=== PATIENT | female | born 1995 | race Caucasian/White ===

== ENCOUNTER → 2021-08-07 16:40 | Outpatient (CLI) | payer OTHER, MEDICAID, SELFPAY ==
[2021-08-07 17:28] LABS: Influenza A - CEPHEID Flu A NEGATIVE (NEGATIVE); Influenza B - CEPHEID Flu B NEGATIVE (NEGATIVE)
== END ==
PROVIDERS: PCP Student in an Organized Health Care Education/Training Program; Visit Provider Physician Assistant
DX: R50.9 Fever, unspecified (principal); R51.9 Headache, unspecified
CPT/HCPCS: 87502

== ENCOUNTER → 2023-05-05 08:09 | Outpatient (CLI) | payer OTHER, SELFPAY ==
--- NOTE | 2023-05-05 | DI.RAD.S_ITS ---
PROCEDURE: XR SINUS <3V INDICATIONS: Acute sinusitis, unspecified TECHNIQUE: One view of the sinuses was acquired. COMPARISON: None. FINDINGS: Sinuses: Visualized sinuses demonstrate no air-fluid levels or mucosal thickening. Bones: No suspicious bony lesions. Nasal septum appears midline. IMPRESSION: No air-fluid levels to suggest acute sinusitis. Approved by: Krishna Shoemaker M.D. on 05/05/2023 at 19:11
== END ==
PROVIDERS: PCP Nurse Practitioner Family; Referring Provider Nurse Practitioner Family; Visit Provider Nurse Practitioner Family
DX: J01.90 Acute sinusitis, unspecified (principal)
CPT/HCPCS: 70210

== ENCOUNTER → 2023-09-10 09:29 | Outpatient (CLI) | payer OTHER, SELFPAY ==
--- NOTE | 2023-09-10 09:29 | DI.CT.S_ITS ---
PROCEDURE: CT SINUS SCREEN WO CON INDICATIONS: CHRONIC PANSINUSITIS, NASAL PAIN,FACIAL PAIN TECHNIQUE: Noncontrast 3.0 mm axial images acquired from the frontal sinuses to the mid-sella, with coronal and sagittal reformats. For radiation dose reduction, the following was used: automated exposure control, adjustment of mA and/or kV according to patient size. COMPARISON: [facility], , XR SINUS <3V, 05/05/2023, 8:14. FINDINGS: Image quality: Excellent. Maxillary Sinuses: There is near complete opacification the right maxillary sinus. The superior medial wall of the right maxillary sinus is remodeled and bowed medially and highly demineralized. The left maxillary sinus appears clear. Ethmoid Air Cells: There is moderate mucosal thickening seen involving the posterior right ethmoid air cells, with associated demineralization. Sphenoid Sinuses: There is complete opacification of the right sphenoid sinuses. Mild mucosal thickening can be seen on the left. Areas of bony demineralization can be seen. Frontal Sinuses: No bony remodeling or destruction. Sinuses are clear. Ostiomeatal Complexes: The ostiomeatal complexes are constitutionally narrowed, with bilateral Bola cells. The right ostiomeatal complex is completely opacified and demineralized. Miscellaneous: Visualized intra-orbital contents are normal. There is demineralization of the right middle turbinate. There is moderate rightward nasal septal deviation. IMPRESSION: Extensive right-sided paranasal sinus disease is seen. The right ostiomeatal complex is completely opacified and demineralized. Dictated by: Ruddy Gonzales M.D. on 09/10/2023 at 9:57 Approved by: Ruddy Gonzales M.D. on 09/10/2023 at 10:01
== END ==
LOC: CT 09:29
PROVIDERS: PCP Nurse Practitioner Family; Referring Provider Otolaryngology; Visit Provider Otolaryngology
DX: J34.89 Other specified disorders of nose and nasal sinuses (principal); R51.9 Headache, unspecified; J32.4 Chronic pansinusitis
CPT/HCPCS: 70486

== ENCOUNTER 2023-11-12 13:28 | Day surgery (SDC) | payer BC, SELFPAY ==
[2023-11-11 12:51] VITALS: BMI 25.0
[2023-11-12 14:34] VITALS: BP 122/80; PULSE 77; RESP 16; TEMP 36.4; O2SAT 100
[2023-11-12] MEDS: LACTATED RINGERS 1,000 ML 42 ML IV (14:48)
[2023-11-12] MEDS: OXYMETAZOLINE NASAL SPRAY 30 ML 2 SPRAYS NASAL (14:48)
[2023-11-12] MEDS: ACETAMINOPHEN IV 1,000 MG/100 ML VIAL 400 MG IV (14:58)
[2023-11-12] MEDS: SCOPOLAMINE 1 PATCH TOP (14:58)
[2023-11-12 15:02] VITALS: BP 122/80; PULSE 77; RESP 16; TEMP 36.4; O2SAT 100; BMI 24.9
--- NOTE | 2023-11-12 15:12 | PM.PREOP ---
Pre-operative Note Interval Note History & Physical reviewed/Exam performed by Physician: Yes Changes to H&P: No
--- NOTE | 2023-11-12 15:12 | PM.OP.1 ---
Operative Date/Time/Diagnoses Date of procedure: 11/12/23 Time of procedure: 17:55 Pre-op diagnosis: Chronic rhinosinusitis, facial pain, headache, septal deviation, nasal airway obstruction Post-op diagnosis: same Procedure & Clinicians Procedure: 1. Right endoscopic maxillary antrostomy with tissue removal 2. Right endoscopic total ethmoidectomy 3. Right endoscopic sphenoidotomy with tissue removal 4. Septoplasty Same procedure as scheduled: Yes Indications: 28 Year old with the above diagnoses incompletely managed with medical therapy presents for the above procedure. Following discussion of the material risks benefits complications and alternatives, the patient elected to proceed. Surgeon: Joel Lorenzo Click Yes if Unassisted: Yes Anesthesia Type: General and Local Operative Notes Findings: RIGHT 2-3+ bony and cartilaginous deviation, no strips taken of the dorsal or caudal residual quadrilateral cartilage, single RIGHT mid low flap perforation, LEFT flap intact. LEFT inf turb hypertrophy. Purulence and inflamed hypertrophied mucosa filling RIGHT maxillary sinus, culture taken. Edematous and inflamed hypertrophied mucosa filling RIGHT sphenoid sinus. Superior portion of posterior ethmoids with minimal inflammation and patent. Specimen(s): none sent (Culture RIGHT maxillary sinus) Estimated Blood Loss (mL): 50 Procedure in detail: Following identification and confirmation of consent as well as preoperative Afrin nasal spray, the patient was brought to the operating room suite and placed in the supine position. General endotracheal anesthesia was administered. I infiltrated the septum widely bilaterally with 1% lidocaine 1 100,000 epinephrine followed by temporary packing with cotton with Afrin and 4% lidocaine. Following sterile prep and drape, the packing was removed and I performed a right tanisha-transfixion incision, elevated the right mucoperichondrial and mucoperiosteal flap. I disarticulated near the bony/cartilaginous junction and elevated the left mucoperiosteal flap. Deviated portions of the perpendicular plate of the ethmoid and vomer were resected. The residual quadrilateral cartilage was further straightened by trimming it inferiorly as well as reducing the maxillary crest. The hemitransfixion incision was closed with interrupted 5 0 chromic followed by a running 4 0 plain gut mattress suture to reapproximate the septal flaps. Under endoscopic guidance the posterior and anterior superior insertion of the right middle turbinate was then infiltrated with additional local anesthetic via spinal needle. Cotton pledgets with 1 1000 epinephrine were placed in the middle meatus for several minutes and used intermittently throughout the case in other areas for hemostasis. The middle turbinate was slightly medialized and the uncinate process was identified with uncinectomy performed via the backbiting forceps and the microdebrider. The natural os of the maxillary sinus was not definitively identified but was likely included in the antrostomy significantly enlarged posteriorly and inferiorly with forceps and the microdebrider, with tissue removed from the maxillary sinus with the microdebrider, followed by irrigation and confirmed hemostasis. Anterior ethmoidectomy was performed by removing the ethmoid bulla with the microdebrider. The Basal lamella of the middle turbinate was perforated inferomedially and the superior turbinate was identified and the inferior portion trimmed. The natural os of the sphenoid sinus was identified and a sphenoidotomy was performed primarily inferiorly and slightly laterally, with edematous mucosal tissue partially resected from within the sinus with the microdebrider near the os only. Posterior to anterior ethmoid dissection along the skull base was minimally performed to complete the posterior ethmoidectomy, as the majority of the area was patent and free of disease. Frontal recess was not approached nor manipulated. At case completion, 20/1000th of an inch silastic splints were placed bilaterally, sutured anteriorly with a single 4 0 nylon. The sponge and needle counts were correct and the patient was extubated in the operating room and taken to recovery room in stable condition without known complication. Complications: none Post-operative Condition: stable Disposition: same day surgery Plan for aftercare: Nasal saline every hour while awake, begin irrigations t.i.d. tomorrow if tolerated. Polysporin to the nostrils at all times, Tylenol alternating with Advil for pain control, oxycodone for breakthrough pain. Elevate head of bed, no nose blowing, no straining for 2 weeks. Ice directly under the nose on the upper lip as tolerated 24-48 hours at a minimum. Follow-up in 1 week for nasal splint removal.
--- NOTE | 2023-11-12 16:06 | SUR.OPER ---
Supine on padded OR bed, head on pillow, arms padded and tucked at sides, legs uncrossed, safety belt at thigh, tape over blanket over lower legs .
[2023-11-12] MEDS: EPINEPHrine 1 MG/ML 6 MG TOP (16:16)
[2023-11-12] MEDS: LIDOCAINE 4% SOLN 50 ML TOP (16:18)
[2023-11-12] MEDS: BACITRACIN OINT 0.9 GM PCKT 1 APPLIC TOP (16:19)
[2023-11-12 18:02] VITALS: BP 124/89; PULSE 94; RESP 12; TEMP 36.1; O2SAT 98
[2023-11-12 18:09] VITALS: BP 128/83; PULSE 91; RESP 12; TEMP 36.1; O2SAT 100
[2023-11-12 18:19] VITALS: BP 136/90; PULSE 77; RESP 13; TEMP 36.2; O2SAT 100
== END 2023-11-12 18:37 | disposition home or self-care (01) ==
PROVIDERS: PCP Nurse Practitioner Family; Referring Provider Otolaryngology; Visit Provider Otolaryngology
PROC: 09QM4ZZ Repair Nasal Septum, Percutaneous Endoscopic Approach (ICD-10-PCS; CPT 30520; principal; 2023-11-12 14:45)
DX: J34.2 Deviated nasal septum (principal); J32.4 Chronic pansinusitis
CPT/HCPCS: 31288; 31267; 31255; 30520; 81025; 87070; 87075; 87147; 87205; J0136; J0171; J1100; J2250; J2405; J2704; J3010

== ENCOUNTER → 2024-02-24 12:53 | Outpatient (CLI) | payer BC, SELFPAY ==
--- NOTE | 2024-02-24 12:54 | DI.CT.S_ITS ---
PROCEDURE: CT SINUS SCREEN WO CON INDICATIONS: chonic pansinusitis TECHNIQUE: Noncontrast 3.0 mm axial images acquired from the frontal sinuses to the mid-sella, with coronal and sagittal reformats. For radiation dose reduction, the following was used: automated exposure control, adjustment of mA and/or kV according to patient size. COMPARISON: [facility], CT, CT SINUS SCREEN WO CON, 09/10/2023, 9:58. FINDINGS: Image quality: Excellent. Maxillary Sinuses: The superior medial wall of the right maxillary sinus has been removed. There is mild mucosal thickening seen within the right maxillary sinus. The left maxillary sinus is within normal limits. Ethmoid Air Cells: No bony remodeling or destruction. Sinuses are clear. Sphenoid Sinuses: No bony remodeling or destruction. Mild mucosal thickening is seen posteriorly. Frontal Sinuses: No bony remodeling or destruction. Mild mucosal thickening can be seen inferior medially on the right. Ostiomeatal Complexes: The right ostiomeatal complex has been removed. The left ostiomeatal complex is highly constitutionally narrowed, with a prominent left-sided Bola cell. Miscellaneous: Visualized intra-orbital contents are normal. 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 No significant nasal septal deviation is seen. The previously seen nasal septal deviation has been corrected. IMPRESSION: Interval postoperative change, with right antrectomy. The focal right-sided paranasal sinus disease is clearly improved compared to the preoperative CT. The nasal septal deviation has been corrected. The left ostiomeatal complex is highly constitutionally narrowed. Dictated by: Ruddy Gonzales M.D. on 02/24/2024 at 14:01 Approved by: Ruddy Gonzales M.D. on 02/24/2024 at 14:03
== END ==
PROVIDERS: PCP Nurse Practitioner Family; Referring Provider Otolaryngology; Visit Provider Otolaryngology
DX: J32.4 Chronic pansinusitis (principal); R51.9 Headache, unspecified; Z98.890 Other specified postprocedural states
CPT/HCPCS: 70486